=== PATIENT | male | born 1965 | race Caucasian/White ===

== ENCOUNTER 2024-04-12 06:16 | Day surgery (SDC) | payer OTHER, SELFPAY ==
[2024-04-12 09:16] VITALS: BMI 25.5
[2024-04-12 09:17] VITALS: BP 149/89
[2024-04-12 10:07] VITALS: BP 111/65
== END 2024-04-12 10:40 | disposition home or self-care (01) ==
LOC: SDS 06:16
PROVIDERS: ATTENDING PHYSICIAN Internal Medicine
DX: K22.70 Barrett's esophagus without dysplasia (principal); K22.89 Other specified disease of esophagus; K29.50 Unspecified chronic gastritis without bleeding; K44.9 Diaphragmatic hernia without obstruction or gangrene; K31.7 Polyp of stomach and duodenum
CPT/HCPCS: 43239; 88305; 88342